=== PATIENT | male | born 1985 | race Caucasian/White ===

== ENCOUNTER 2017-08-05 21:37 | Emergency (ER) | payer OTHER ==
[2017-08-05] MEDS ORDERED: ONDANSETRON 4 MG/2 ML VIAL IVPB ONE (22:47)
[2017-08-05] MEDS ORDERED: KETOROLAC TROMETHAMINE 30 MG/1 ML VIAL IVPUSH ONE (22:47)
[2017-08-05] MEDS ORDERED: SODIUM CHLORIDE 1,000 ML IV STA (22:47)
--- NOTE | 2017-08-05 22:49 | PDOC ---
*Physical Exam - Physical Exam Comments: 08/11/17 23:22 Pt seen by the Advanced Practice Provider under my direct supervision Ancillary studies reviewed I agree with plan as outlined by the Advanced Practice Provider ED Treatment Course - LABORATORY CBC & Chemistry Diagram: 08/05/17 23:51 08/05/17 23:51 *DC/Admit/Observation/Transfer Diagnosis at time of Disposition: Renal colic on right side - Discharge Dispostion Disposition: HOME - Prescriptions Prescriptions: Tamsulosin HCl [Flomax] 0.4 mg PO DAILY #30 cap.er.24h Oxycodone HCl/Acetaminophen [Percocet 5-325 mg Tablet] 1 tab PO Q6H PRN #20 tablet MDD 4 tab PRN Reason: Severe Pain Ketorolac Tromethamine [Toradol] 10 mg PO Q8H PRN #21 tablet PRN Reason: Mild Pain - Referrals Referrals: Yaakov Soria MD [Staff Physician] - - Patient Instructions Printed Discharge Instructions: Kidney Stones -- Adult Additional Instructions: Follow up with Dr. Soria (Urology). Call to schedule appointment for further evaluation. Take medications as prescribed. Drink plenty fluids. Print Language: LATVIAN
--- NOTE | 2017-08-05 22:54 | PDOC ---
History of Present Illness - General Stated Complaint: ABD PAIN Time Seen by Provider: 08/05/17 22:33 History Source: Patient Exam Limitations: No Limitations - History of Present Illness Travel History: No Initial Comments: 08/05/17 22:49 32yo Male patient with PmHx: Renal Colic presents to ED c/o right flank pain that began tonight at 6pm. Patient reports pain was 25/10 severity, unable to move, or walk. Vomited x 1. Patient reports pain comes and goes and feels like a pinching sensation. Associated Nausea. He denies any other complaints at this time. Timing/Duration: reports: intermittent. denies: constant, getting worse, changing over time, resolved prior to arrival, gone now, other Quality: reports: other (Pinching). denies: mild, moderate, severe, aching, burning, cramping, dullness, fullness, sharpness, stabbing, throbbing Abdominal Pain Onset Location: reports: flank. denies: RUQ, LUQ, RLQ, LLQ, epigastric, periumbilical, suprapubic, generalized abdomen, unknown, other Pain Radiation: reports: groin. denies: no radiation, RUQ, LUQ, RLQ, LLQ, epigastric, periumbilical, flank, scapula, shoulder, chest, back, other Activities at Onset: reports: no specific activity. denies: none, exertion, emotional upset, rest, sleep, eating, working, sexual intercourse, other Treatment Prior to Arrive: worse with: analgesics, antacids, cold pack, heat, laxative, enema, other Past History - Travel Traveled outside of the country in the last 30 days: No Close contact w/someone who was outside of country & ill: No - Past Medical History Allergies/Adverse Reactions: Allergies Allergy/AdvReac Type Severity Reaction Status Date / Time No Known Allergies Allergy Verified 08/05/17 23:33 Home Medications: Ambulatory Orders Ketorolac Tromethamine [Toradol] 10 mg PO Q8H PRN #21 tablet 08/06/17 Oxycodone HCl/Acetaminophen [Percocet 5-325 mg Tablet] 1 tab PO Q6H PRN #20 tablet MDD 4 tab 08/06/17 Tamsulosin HCl [Flomax] 0.4 mg PO DAILY #30 cap.er.24h 08/06/17 Abd/GI Specific PMHX - Complaint Specific PMHX Colitis: No Diverticulitis: No Gall Bladder Disease: No GERD: No Hepatitis: No Irritable Bowel Synd (IBS): No Pancreatitis: No GI Ulcer Disease: No Review of Systems - Review of Systems Able to Perform ROS?: Yes Is the patient limited Salvadorean proficient: No Constitutional: No: Chills, Fever Respiratory: No: Shortness of Breath, Stridor, Wheezing Cardiac (ROS): No: Chest Pain, Chest Tightness ABD/GI: Yes: Nausea, Vomiting. No: Constipated, Diarrhea, Poor Appetite, Poor Fluid Intake : Yes: Flank Pain. No: Burning, Dysuria, Discharge, Frequency, Hematuria, Pain, Urgency, Testicular Pain Musculoskeletal: Yes: Back Pain All Other Systems: Reviewed and Negative *Physical Exam - Physical Exam General Appearance: Yes: Nourished, Appropriately Dressed, Mild Distress. No: Apparent Distress, Moderate Distress, Severe Distress Neck: positive: Trachea midline, Normal Thyroid, Supple. negative: Lymphadenopathy (R), Lymphadenopathy (L), Tender lateral, Tender midline Respiratory/Chest: positive: Lungs Clear, Normal Breath Sounds. negative: Chest Tender, Respiratory Distress, Accessory Muscle Use, Labored Respiration, Rapid RR, Rhonchi, Stridor, Wheezing Cardiovascular: positive: Regular Rhythm, Regular Rate Gastrointestinal/Abdominal: positive: Normal Bowel Sounds, Soft. negative: Distended, Guarding, Rebound, Tenderness Male Genitalia: positive: normal genitalia. negative: normal prostate, discharge, testicular tenderness, testicular mass, epididymus tender, inguinal hernia, hernia, CVAT, hematuria, other Musculoskeletal: positive: Normal Inspection, CVA Tenderness, CVA Tenderness (R) . negative: CVA Tenderness (L), Decreased Range of Motion, Vertebral Tenderness Extremity: positive: Normal Capillary Refill, Normal Inspection, Normal Range of Motion. negative: Pedal Edema, Swelling, Calf Tenderness, Erythema, Inflammation Integumentary: positive: Normal Color, Dry, Warm Neurologic: positive: pheresis nurse II-XII NML intact, Fully Oriented, Alert, Normal Mood/ Affect, Normal Response, Motor Strength 5/5 ED Treatment Course - LABORATORY CBC & Chemistry Diagram: 08/05/17 23:51 08/05/17 23:51 - RADIOLOGY Radiology Studies Ordered: Category Date Time Status ABDOMEN & PELVIS CT W/O CONTR [CT] Stat CT Scan 08/05/17 22:47 Ordered *DC/Admit/Observation/Transfer Diagnosis at time of Disposition: Renal colic on right side - Discharge Dispostion Disposition: HOME Condition at time of disposition: Improved Admit: No - Prescriptions Prescriptions: Tamsulosin HCl [Flomax] 0.4 mg PO DAILY #30 cap.er.24h Oxycodone HCl/Acetaminophen [Percocet 5-325 mg Tablet] 1 tab PO Q6H PRN #20 tablet MDD 4 tab PRN Reason: Severe Pain Ketorolac Tromethamine [Toradol] 10 mg PO Q8H PRN #21 tablet PRN Reason: Mild Pain - Referrals Referrals: Yaakov Soria MD [Staff Physician] - - Patient Instructions Printed Discharge Instructions: Kidney Stones -- Adult Additional Instructions: Follow up with Dr. Soria (Urology). Call to schedule appointment for further evaluation. Take medications as prescribed. Drink plenty fluids. Print Language: COLOMBIAN
[2017-08-05 23:32] VITALS: BP 134/74; PULSE 99; TEMP 98.2; BMI 25.7
[2017-08-06 00:01] LABS: BASOPHIL 0.5 % (0-2.0); EOSINOPHIL 0.1 % (0-4.5); MCH 29.6 pg (25.7-33.7); MCHC 34.1 g/dl (32.0-35.9); MEAN CELL VOLUME 86.8 fl (80-96); MEAN PLT VOLUME 8.9 fl (7.5-11.1); NEUTROPHILS 85.4 % (42.8-82.8); PLATELET COUNT 249 K/MM3 (134-434); RDW 12.8 % (11.9-15.9); WHITE BLOOD COUNT 13.2 K/mm3 (4.0-10.0)
[2017-08-06 00:22] LABS: ALBUMIN 4.2 g/dl (3.4-5.0); ANION GAP 9 (8-16); BILIRUBIN,TOTAL 0.9 mg/dL (0.2-1.0); CALCIUM 9.5 mg/dL (8.5-10.1); CO2 28 mmol/L (21-32); CREATININE 1.1 mg/dL (0.7-1.3); GLUCOSE,RANDOM 103 mg/dL (74-106); SGOT/AST 17 U/L (15-37); SGPT/ALT 29 U/L (12-78); TOT PROT 7.7 g/dl (6.4-8.2)
[2017-08-06 00:23] LABS: ALK PHOS 72 U/L (45-117)
[2017-08-06 00:57] LABS: URINE APPEARANCE SLCLOUDY; URINE BILIRUBIN NEGATIVE (NEGATIVE); URINE BLOOD 2+ (NEGATIVE); URINE COLOR YELLOW; URINE GLUCOSE (UA) NEGATIVE (NEGATIVE); URINE KETONE NEGATIVE (NEGATIVE); URINE LEUK ESTERASE NEGATIVE (NEGATIVE); URINE NITRITE NEGATIVE (NEGATIVE); URINE PROTEIN NEGATIVE (NEGATIVE); URINE UROBILINOGEN NEGATIVE mg/dL (0.2-1.0)
[2017-08-06 01:01] LABS: URINE MUCUS MANY; URINE RBC 43 /hpf (0-3); URINE WBC 12 /hpf (3-5)
[2017-08-06] MEDS ORDERED: TAMSULOSIN HCL 0.4 MG CAP.ER.24H (FP) PO ONE (01:01)
[2017-08-06] MEDS ORDERED: TAMSULOSIN HCL 0.4 MG CAP.ER.24H (FP) ONE (01:57)
== END 2017-08-06 02:00 | disposition home or self-care (01) ==
LOC: JER 21:37
PROC: 3E0333Z Introduction of Anti-inflammatory into Peripheral Vein, Percutaneous Approach (ICD-10-PCS; principal; 2017-08-05)
PROC: 3E033GC Introduction of Other Therapeutic Substance into Peripheral Vein, Percutaneous Approach (ICD-10-PCS; 2017-08-05)
DX: N20.0 Calculus of kidney (principal); Z87.442 Personal history of urinary calculi
CPT/HCPCS: 36415; 74176-TC; 80053; 81003; 81015; 85025; 96374; 96375; 99282-25